=== PATIENT | female | born 1975 | race American Indian/Alaskan Native ===

== ENCOUNTER 2017-10-02 06:51 | Day surgery (SDC) | payer OTHER ==
--- NOTE | 2017-09-30 10:28 | History and Physical Report ---
History of Present Illness Date of examination: 09/30/17 Date of admission: 10/02/17 Chief complaint: heavy periods History of present illness: Visit Type: Pre-Op History of Present Illness: Patient presents for pre operative evaluation....Luann Garcia . The patient complains of heavy bleeding, but denies spotting, menses, lack of menses, dysmenhorrhea, she may be , history of thyroid disease, history of fibroids, history of bleeding disorders, lightheadness, orthostatic symptoms, fatigue and cramping. Menstrual periods have been regular and with excessive flow. Interval between menses is 28 days. Number of pads used per day is 6-8. Menstrual flow lasts 7 days. Heavy bleeding with passage of quarter sized clots has been present x 1 year. To her knowledge she does not have fibroids and has had no previosu episodes. She had pap [id number] agon with [facility] and wasn normal as per pt. No bleeding with sex, not bleeding between periods. Pt is s/p embx which was negative. Several treatment options for menorrhagia were d/w pt. All risk/benefits/alternatives were d/w pt and questions were addressed and answered. She desires the novasure ablation. Pt here for pre op for this procedure. She already has had BTL so contraception is not needed. Vital Signs: Patient Profile: 42 Years Old Female LMP: 09/06/2017 Height: 64 inches Weight: 196 pounds BMI: 33.64 BSA: 1.94 BP sittin / 70 (left arm) Vitals Entered By: Luann Garcia (September 29, 2017 10:15 AM) Menstrual History: LMP (date): 09/06/2017 Current Method of Contraception: BTL Date of Last Pap Smear: 08/03/2017 Past History : 3 Term Births: 3 Living Children: 3 Para: 3 Prev : 1 [employer]ATION M[employer]INE [employer] History Uterine Surgery (not C/S): negative Operations: positive Tubal Ligation Hospitalizations: negative Anesthesia Complications: negative Abnormal PAP: negative Uterine Anomaly: negative DWIGHT Exposure: negative Infertility: negative Infection History Personal hx. of genital herpes: no Partner hx. 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 Denies nausea, vomiting, headache, swelling of legs, abdominal pain, vaginal discharge, vaginal bleeding and contractions. Complains of menorrhagia. Denies vaginal discharge, incontinence, dysuria, hematuria, urinary frequency, amenorrhea, abnormal vaginal bleeding, pelvic pain, genital sores, decreased libido, painful periods, painful sex, urinary urgency, hot flashes, vaginal dryness, vaginal itching and vaginal odor. CV Denies chest pains, palpitations, syncope, dyspnea on exertion, orthopnea, PND and peripheral edema. Resp Denies cough, dyspnea at rest, excessive sputum, hemoptysis, wheezing and pleurisy. GI Denies nausea, vomiting, diarrhea, constipation, change in bowel habits, abdominal pain, melena, hematochezia, jaundice, gas/bloating, indigestion/ heartburn, dysphagia and odynophagia. Endo Denies cold intolerance, heat intolerance, polydipsia, polyphagia, polyuria and unusual weight change. Breast Denies left breast lump, right breast lump, nipple discharge, bloody discharge from nipple, breast pain, abnormal mammogram and breast enlargement. MS Denies back pain, joint pain, joint swelling, muscle cramps, muscle weakness, stiffness, arthritis, sciatica, restless legs, leg pain at night and leg pain with exertion. Derm Denies rash, itching, dryness and suspicious lesions. Neuro Denies paralysis, paresthesias, headache, seizures, tremors, vertigo, transient blindness, frequent falls, frequent headaches and difficulty walking. Psych Denies depression, anxiety, irritability and mood swings. Eyes Denies blurring, diplopia, irritation, discharge, vision loss, eye pain and photophobia. ENT Denies earache, ear discharge, tinnitus, decreased hearing, nasal congestion, nosebleeds, sore throat and hoarseness. Allergy Denies urticaria, allergic rash, hay fever and recurrent infections. Heme Denies abnormal bruising, bleeding and enlarged lymph nodes. [Labs In-House] Physical Exam Appearance: well developed, well nourished, no acute distress Other Exams Breast exam: no masses or nipple discharge Abdomen: soft, non-tender, no masses, bowel sounds normal Skin: no ulcers, xanthomas Lymph: no cervical, axillary, or inguinal adenopathy Extremities: normal alignment, no joint enlargement, crepitus, masses or tenderness; normal tone and strength Genitourinary Exam Vulva: normal, no lesions or discharge Urethral meatus: normal size and location, no lesions or discharge Urethra: no discharge Bladder: no cystocele Vagina: normal appearance, no discharge, lesions. No evidence of cystocele or rectocele. Cervix: normal appearance, no lesions, no discharge Uterus: normal position, midline, mobile Adnexa: no masses or tenderness Past History Past Medical History: no pertinent history Past Surgical History: section, other (btl) [employer] History: denies: abnormal PAP smear Social history: no significant social history, single Medications and Allergies Allergies Allergy/AdvReac Type Severity Reaction Status Date / Time No Known Allergies Allergy Unverified 09/29/17 14:47 Review of Systems All systems: negative - Physical Exam Cardiovascular: Normal S1, Normal S2 Lungs: Positive: Clear to auscultation, Normal air movement Abdomen: Positive: normal appearance, soft. Negative: distention, tenderness, guarding Genitourinary (Female): Positive: normal external genitalia, normal perenium Vagina: Positive: normal moisture Cervix: Negative: lesion Uterus: Positive: normal size, normal contour Extremities: Positive: normal. Negative: tenderness, edema Results All other labs normal. Assessment and Plan - Patient Problems (1) Menorrhagia Status: Acute Qualifiers: Menorrahagia type: with regular cycle Qualified Code(s): N92.0 - Excessive and frequent menstruation with regular cycle Plan to address problem: -admit for hysteroscopy with novasure ablation -consents signed and given to pt to bring to the hospital day of sx
[~2017-10-02 06:51] MED LIST: ANCEF/STERILE WATER 2 GM/20 ML 2 GM/20 ML SYRINGE IV NR
[2017-10-02] MEDS ORDERED: ANCEF/STERILE WATER 2 GM/20 ML 2 GM/20 ML SYRINGE IV NR (08:00)
[2017-10-02] MEDS ORDERED: NACL BACTERIOSTATIC INFILTRATI ONE (08:04)
[2017-10-02 08:21] LABS: Hemoglobin 11.9 gm/dl (10.1-14.3)
[2017-10-02] MEDS ORDERED: DIPRIVAN 10 MG/ML IV ONE ×2 (08:22→09:07)
[2017-10-02] MEDS ORDERED: DEMEROL IV PRN (08:28)
[2017-10-02] MEDS ORDERED: ZOFRAN IV PRN (08:28)
--- NOTE | 2017-10-02 08:31 | Anesthesia Consultation ---
Anesthesia Consult and Med Hx - Airway Anesthetic Teeth Evaluation: Good ROM Head & Neck: Adequate Mental/Hyoid Distance: Adequate Mallampati Class: Class I Intubation Access Assessment: Good - Pulmonary Exam CTA: Yes - Cardiac Exam Cardiac Exam: RRR - Pre-Operative Health Status ASA Pre-Surgery Classification: ASA1 Proposed Anesthetic Plan: General - Central Nervous System Hx Psychiatric Problems: No - Hematic Hx Sickle Cell Disease: Yes (Trait only) - Other Systems Hx Alcohol Use: Yes (occas) Hx Cancer: No
--- NOTE | 2017-10-02 08:31 | Anesthesia Day of Surgery ---
Anesthesia Day of Surgery - Day of Surgery Patient Examined: Yes Patient H&P Reviewed: Yes Patient is NPO: Yes
[2017-10-02] MEDS ORDERED: NACL 0.9% IR ONE (08:55)
[2017-10-02] MEDS ORDERED: SILVER NITRATE TP ONE (08:55)
[2017-10-02] MEDS ORDERED: LACTATED RINGERS 1,000 ML IV SCH (09:00)
[2017-10-02] MEDS ORDERED: VERSED IV NR (09:00)
[2017-10-02] MEDS ORDERED: SUBLIMAZE ONE (09:14)
[2017-10-02] MEDS ORDERED: XYLOCAINE MPF 2% ONE (09:36)
[2017-10-02] MEDS ORDERED: TORADOL ONE (09:50)
[2017-10-02] MEDS ORDERED: ZOFRAN ONE (10:00)
[2017-10-02] MEDS ORDERED: DECADRON ONE (10:00)
--- NOTE | 2017-10-02 10:26 | Operative Report ---
Operative Report Operative Report: Date of procedure: 10/02/2017 Pre-operative diagnosis: Menorrhagia Post-operative diagnosis: Same Procedure name(s): 1. Hysteroscopy 2. NovaSure ablation Surgeon: Christel Goldstein M.D. Qa Lead: Mory surgical scrub optometry assistant Anesthesia: Gen. EBL: Minimal Urine output: 200 mL of urine out at the beginning of the procedure via straight catheterization Fluids: 700 mL Findings: On hysteroscopy it was noted that the endometrium was thickened with a lot of tissue noted. After the ablation the uterus was noted to have a good ablative burn noted extending across the fundus and encompassing the entire cavity. Indications: Patient with a history of heavy menstrual periods for the last 2 years. Periods became progressively worse over the last several months. Patient underwent sonogram that did not show any masses inside the uterine cavity as well as no fibroids were noted. Patient underwent endometrial biopsy that was also negative. Treatment options were discussed with the patient and she desired to have an ablative procedure for the treatment of the menorrhagia. All risks benefits and alternatives were discussed with the patient. All questions were addressed and answered. Procedure: Patient was taken to the operating room where she was placed under general endotracheal anesthesia she was then prepped and draped in normal sterile fashion in dorsal lithotomy position with legs in Christopher stirrups. Straight catheterization of the bladder was performed at this time. Sterile speculum was placed inside of the vagina to visualize the entire cervix. The anterior lip of the cervix was grasped with a single-tooth tenaculum and the uterus was sounded to 8 cm. The cervix was then dilated in order to allow passage of the hysteroscope. Hysteroscopy yielded the above-stated findings. The cervical length was noted to be 4 cm. The uterine cavity length was calculated to be 4cm. The cervix was then dilated more to allow passage of the NovaSure device. With placement of the NovaSure device the cavity width was noted to be 3cm. The integrity of the seal was then tested. The device did pass the testing. The power that was used for the NovaSure ablation was 66W. The amount of time of the ablation was 120seconds. Hysteroscopy following the ablation noted that there was adequate cauterization of the uterine cavity. All instruments were removed from the vagina and the cervix. Patient tolerated the procedure well. All counts were correct.
--- NOTE | 2017-10-02 10:30 | Short Stay Summary ---
Short Stay Documentation Date of service: 10/02/17 - History H&P: dictated Past Medical History: No medical history Social history: no significant social history, single - Allergies and Medications Current Medications: Allergies No Known Allergies Allergy (Verified 10/02/17 07:40) Home Medications Medication Instructions Recorded Confirmed Last Taken Type No Known Home Medications [No 09/30/17 09/30/17 Unknown History Reported Home Medications] Active Medications Cefazolin Sodium (Ancef/Sterile Water 2 Gm/20 Ml) 2 gm in 20 mls @ 80 mls/hr IV PREOP NR; Protocol Stop: 10/02/17 12:00 Lactated Ringer's (Lactated Ringers) 1,000 mls @ 100 mls/hr IV DIRECT DANIEL Last Admin: 10/02/17 08:40 Dose: 100 mls/hr Meperidine HCl (Demerol) 25 mg IV ONCE PRN PRN Reason: Shivering Stop: 10/02/17 11:00 Midazolam HCl (Versed) 2 mg IV PREOP NR Stop: 10/02/17 23:59 Last Admin: 10/02/17 08:41 Dose: 2 mg Ondansetron HCl (Zofran) 4 mg IV ONCE PRN PRN Reason: Nausea And Vomiting Stop: 10/02/17 11:00 - Brief post op/procedure progress note Date of procedure: 10/02/17 Pre-op diagnosis: menorrhagia Post-op diagnosis: same Procedure: Hysteroscopy NovaSure ablation Anesthesia: GETA Findings: See operative report Surgeon: ARIS BERGERON Estimated blood loss: none Pathology: list (intrauterine tissue) Specimen disposition: to lab Condition: stable - Hospital course Hospital course: Patient admitted for above-stated procedure. Patient Recovery in PACU. Once recovery criteria was completed patient was DC'd home. - Disposition Condition at discharge: Good Disposition: DC-01 TO HOME OR SELFCARE - Discharge Diagnoses (1) Menorrhagia Status: Acute Qualifiers: Menorrahagia type: with regular cycle Qualified Code(s): N92.0 - Excessive and frequent menstruation with regular cycle Short Stay Discharge Plan Activity: no restrictions Diet: regular Follow up with: RONKA JOHNSON MD [Primary Care Provider] - 7 Days
[2017-10-02] MEDS ORDERED: PERCOCET 5/325 PO PRN (11:00)
[2017-10-02] MEDS ORDERED: PERCOCET 5/325 ONE (11:11)
[2017-10-02 11:30] VITALS: BP 164/93
== END 2017-10-02 12:02 | disposition home or self-care (01) ==
LOC: OR 06:51
PROVIDERS: ATTEND Obstetrics & Gynecology
DX: N92.0 Excessive and frequent menstruation with regular cycle (principal); D57.3 Sickle-cell trait; Z98.51 Tubal ligation status; Z98.890 Other specified postprocedural states
CPT/HCPCS: 36415; 58563; 81025; 85014; 85018; A4217; C1782; J0690; J1100; J1885; J2175; J2250; J2405; J2704; J3010; J7120